=== PATIENT | male | born 1980 | race Two or more races ===

== ENCOUNTER 2016-11-05 06:25 | Emergency (ER) | payer OTHER ==
[2016-11-05] MEDS: HYDROmorphone 1 MG/ML 1 ML SYRINGE IVP STA ×2 (06:30→08:11)
[2016-11-05] MEDS ORDERED: ceFAZolin 1,000 MG in DEXTROSE/WATER 1 50ML.BAG IVPB STA (06:31)
[2016-11-05] MEDS ORDERED: SODIUM CHLORIDE 0.9% 1,000 ML IV STA ×2 (06:40→07:11)
[2016-11-05] MEDS ORDERED: DIPH,PERTUS(ACELL)TETVAC-LF 0.5 ML VIAL IM ONE (06:40)
[2016-11-05] MEDS ORDERED: HYDROmorphone 1 MG/ML 1 ML SYRINGE IVP STA ×2 (06:40→07:20)
[2016-11-05] MEDS ORDERED: RX INFO: IV CONTRAST WAS GIVEN 1 EACH MISC MISCELLANE PRN (06:40)
[2016-11-05 06:47] VITALS: BP 157/92; PULSE 75; RESP 22; TEMP 98.9
[2016-11-05 06:53] LABS: HCT 45.1 % (39.0-53.0); HDW 2.69; HGB 15.7 gm/dL (13.0-17.5); MCHC 34.8 g/dL (31.0-37.0); MCV 86.3 fL (80.0-100.0); Mean Platelet Volume 7.5; RBC 5.23 m/uL (4.30-5.90); RDW 13.3 % (11.5-15.5); WBC (Perox) 24.49
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
[2016-11-05 07:02] LABS: Partial Thromboplastin Time 23.4 sec (22.0-30.0); Prothrombin Time 10.5 sec (9.0-12.0)
[2016-11-05 07:03] LABS: ALT 49 U/L (21-72); AST 41 U/L (17-59); Alcohol <10 mg/dL; Alkaline Phosphatase 69 U/L (38-126); Amylase 55 U/L (30-110); Anion Gap 14 mmol/L; Blood Urea Nitrogen 16 mg/dL (9-20); Calcium 9.2 mg/dL (8.4-10.2); Carbon Dioxide 19 mmol/L (22-30); Chloride 108 mmol/L (98-107); Glucose 181 mg/dL (74-99); Non-African American GFR(MDRD) >60 (>60 ml/min/1.73 sqM); Potassium 3.4 mmol/L (3.5-5.1); Sodium 141 mmol/L (137-145); Total Bilirubin 1.1 mg/dL (0.2-1.3); Total Protein 6.6 g/dL (6.3-8.2)
[2016-11-05 07:04] LABS: WBC 26.2 k/uL (3.8-10.6)
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
[2016-11-05 07:12] LABS: Creatine Kinase 346 U/L (55-170)
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
[2016-11-05 07:25] LABS: Troponin I <0.012 ng/mL (0.000-0.034)
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
[2016-11-05 07:32] LABS: Creatine Kinase MB 3.1 ng/mL (0.0-2.4)
[2016-11-05 07:43] LABS: Add Differential Manual Differential
[2016-11-05 07:49] LABS: Manual Review Performed; Nucleated Red Blood Cells 0 /100 WBC (0-0); RBC Morphology Normal; Total Cells Counted 100
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
[2016-11-05] MEDS ORDERED: GENTAMICIN 180 MG in SODIUM CHLORIDE 0.9% 100 ML IV ONE (08:30)
[2016-11-05 09:47] LABS: Reflex Lactic Acid Y
== END 2016-11-05 08:29 | disposition short-term general hospital (02) ==
LOC: EC 06:25
DX: S82.102B Unspecified fracture of upper end of left tibia, initial encounter for open fracture type I or II (principal); S82.832B Other fracture of upper and lower end of left fibula, initial encounter for open fracture type I or II; S92.302B Fracture of unspecified metatarsal bone(s), left foot, initial encounter for open fracture; Z88.6 Allergy status to analgesic agent; V23.4XXA Motorcycle driver injured in collision with car, pick-up truck or van in traffic accident, initial encounter; Y92.410 Unspecified street and highway as the place of occurrence of the external cause
CPT/HCPCS: 99291; 29505; 96365; 96368; 96375; 96376; 96361; 90471; 36415; 86900; 86901; 80053; 82150; 82550; 82553; 83605; 83690; 84484; 85025; 85610; 85730; 86850; 80320; 71010; 72170; 73551; 73080; 73130; 73590; 73620; 72125; 70450; 71260; 74177; 90715; J1580; J1170; Q9967; J0690

== ENCOUNTER 2023-10-06 10:51 | Day surgery (SDC) | payer OTHER, MEDICARE ==
[2023-10-02 14:02] VITALS: BMI 33.9
[2023-10-06] MEDS: LIDOCAINE 1% (10MG/ML) FOR IV START INTRADERMA PRN (11:12)
[2023-10-06] MEDS: LACTATED RINGERS 1,000 ML IV SCH (11:12)
[2023-10-06] MEDS ORDERED: PROPOFOL 10 MG/ML 20 ML VIAL IV ONE (11:42)
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
[2023-10-06 11:47] VITALS: RESP 16; TEMP 97.9
--- NOTE | 2023-10-06 11:55 | P.PCN ---
Date of Procedure: 10/06/23 Procedure(s) Performed: PREOPERATIVE DIAGNOSIS: Screening with family history of colon cancer in father POSTOPERATIVE DIAGNOSIS: Rectal polyp PROCEDURE: Colonoscopy with snare polypectomy ANESTHESIA: MAC SURGEON: Mega Trevizo M.D. SPECIMENS: Rectal polyp ENDOSCOPIC PROCEDURE: The patient was placed on the endoscopy table in the left decubitus position. The Olympus colonoscope was inserted into the anus and passed under direct visualization to the base of the cecum. The appendiceal orifice was visualized. From that point the scope was slowly withdrawn inspecting all surfaces carefully. There were no neoplastic inflammatory or polypoid lesions throughout the cecum, ascending, transverse, descending, and sigmoid colon. In the rectum a small polyp was seen and removed using the snare technique. The remainder of the rectum was normal. There was no visible diverticulosis. Digital rectal examination was normal. The patient was taken to the recovery room in stable condition per anesthesia guidelines. RECOMMENDATIONS: Await biopsy results. Repeat colonoscopy 5 years.
[2023-10-06 12:46] VITALS: BP 146/85; PULSE 47
== END 2023-10-06 12:44 | disposition home or self-care (01) ==
LOC: ORWHC2ENDO 10:51
PROVIDERS: ATTEND Surgery
DX: Z12.11 Encounter for screening for malignant neoplasm of colon (principal); K62.1 Rectal polyp; F10.90 Alcohol use, unspecified, uncomplicated; F12.90 Cannabis use, unspecified, uncomplicated; Z88.6 Allergy status to analgesic agent; Z80.0 Family history of malignant neoplasm of digestive organs
CPT/HCPCS: 88305; 45385; J2704